=== PATIENT | male | born 1955 | race Caucasian/White ===

== ENCOUNTER → 2019-02-16 | Outpatient (CLI) | payer OTHER ==
--- NOTE | 2019-02-16 07:53 | US ---
EXAMINATION TYPE: US gallbladder DATE OF EXAM: 02/16/2019 COMPARISON: NONE CLINICAL HISTORY: R10.11 RUQ Pain. Intermittent epigastric and lower back tenderness x 2 to 3 weeks EXAM MEASUREMENTS: Liver Length: 13.6 cm Gallbladder Wall: 0.2 cm CBD: 0.3 cm Right Kidney: 10.4 x 5.0 x 4.8 cm Pancreas: visualized portions wnl, limited by overlying midline bowel gas Liver: There is increased echogenicity of the hepatic parenchyma with diminished visualization of th e portal triads most commonly relating to hepatic steatosis and limiting evaluation for underlying he patic masses. There is an anechoic probable cyst measuring 1.3 cm with slight increased through trans mission. Gallbladder: wnl Evidence for sonographic Vasquez's sign: no CBD: visualized portions wnl, limited by overlying bowel gas Right Kidney: wnl IMPRESSION: Increased echogenicity of the hepatic parenchyma most commonly related to mild degree hep atic steatosis. Correlate with liver function tests. Solitary probable 1.3 cm hepatic cyst is also se en.
== END | disposition home or self-care (01) ==
LOC: RADUSWWP 06:45
PROVIDERS: ATTEND Family Medicine
DX: K76.0 Fatty (change of) liver, not elsewhere classified (principal)
CPT/HCPCS: 76705

== ENCOUNTER 2021-01-03 08:10 | Day surgery (SDC) | payer MEDICARE, OTHER ==
[2021-01-01 08:34] VITALS: BMI 26.3
[~2021-01-03 08:10] MED LIST: LACTATED RINGERS 1,000 ML IV SCH
[2021-01-03] MEDS ORDERED: LACTATED RINGERS 1,000 ML IV ONE (09:03)
[2021-01-03 09:04] VITALS: TEMP 97.5
[2021-01-03] MEDS ORDERED: PROPOFOL 10 MG/ML 20 ML VIAL IV ONE (09:37)
--- NOTE | 2021-01-03 09:45 | P.GSHP ---
History of Present Illness H&P Date: 01/03/21 Chief Complaint: History of colon polyps This is a 65-year-old male with previous history of colon polyps. His last colonoscopy was 5 years ago. Past Medical History Past Medical History: Osteoarthritis (OA), Prostate Disorder Additional Past Medical History / Comment(s): palpitations, BPH., snores, constipation, hx of colon polyps. History of Any Multi-Drug Resistant Organisms: None Reported Past Surgical History: Hernia Repair Additional Past Surgical History / Comment(s): inguinal hernia, colonoscopy Past Anesthesia/Blood Transfusion Reactions: No Reported Reaction, Motion Sickness Past Psychological History: No Psychological Hx Reported Smoking Status: Former smoker Past Alcohol Use History: Occasional Additional Past Alcohol Use History / Comment(s): smoked for approx 1 yr as teen Past Drug Use History: None Reported - Past Family History Father Family Medical History: CVA/TIA, Myocardial Infarction ([place]) Mother Family Medical History: Dementia Brother(s) Family Medical History: Cancer Additional Family Medical History / Comment(s): pancreatic cancer Medications and Allergies Home Medications Medication Instructions Recorded Confirmed Type Co Q-10 1 tab PO DAILY 01/01/21 01/01/21 History Allergies Allergy/AdvReac Type Severity Reaction Status Date / Time No Known Allergies Allergy Verified 01/01/21 08:13 Surgical - Exam Vital Signs Temp Pulse Resp BP Pulse Ox 97.5 F L 70 18 131/63 97 01/03/21 09:03 01/03/21 09:03 01/03/21 09:03 01/03/21 09:03 01/03/21 09:03 - General well developed, well nourished, no distress - Eyes PERRL - ENT normal pinna - Neck no masses - Respiratory normal expansion - Cardiovascular Rhythm: regular - Abdomen Abdomen: soft, non tender Assessment and Plan Assessment: History of colon polyps. We'll perform colonoscopy.
--- NOTE | 2021-01-03 10:01 | P.OP ---
Date of Procedure: 01/03/21 Preoperative Diagnosis: History of colon polyps Postoperative Diagnosis: Right colon polyp Procedure(s) Performed: Colonoscopy Anesthesia: MAC Surgeon: Maximilian Salomon Pathology: other (Right colon polyp) Condition: stable Disposition: PACU Description of Procedure: The patient's placed on the endoscopy table in the lateral position. He received IV sedation. Digital rectal exam was performed which revealed no ebonized. The flexible colonoscope was then placed patient anus passed throughout the entire colon. The ileocecal valve was visualized. Cecum appeared normal. In the right colon there was a polyp seen this removed with the snare. The remainder the ascending colon, transverse colon the colon appeared normal. In the sigmoid colon a few scattered diverticula. Scope was brought back the rectum this appeared all. Scope withdrawn for patient.
[2021-01-03 10:19] VITALS: BP 111/70; PULSE 67; RESP 16
== END 2021-01-03 10:52 | disposition home or self-care (01) ==
LOC: ORWHC2ENDO 08:10
PROVIDERS: ATTEND Surgery
DX: Z12.11 Encounter for screening for malignant neoplasm of colon (principal); D12.2 Benign neoplasm of ascending colon; K63.3 Ulcer of intestine; K57.30 Diverticulosis of large intestine without perforation or abscess without bleeding; Z86.010 Personal history of colon polyps; R00.2 Palpitations; N40.0 Benign prostatic hyperplasia without lower urinary tract symptoms; M19.90 Unspecified osteoarthritis, unspecified site; K59.00 Constipation, unspecified; Z98.890 Other specified postprocedural states; Z87.891 Personal history of nicotine dependence; Z82.3 Family history of stroke; Z82.49 Family history of ischemic heart disease and other diseases of the circulatory system; Z81.8 Family history of other mental and behavioral disorders; Z80.0 Family history of malignant neoplasm of digestive organs
CPT/HCPCS: 88305; 45385; J2704

== ENCOUNTER → 2022-07-03 | Outpatient (CLI) | payer MEDICARE, OTHER ==
[2022-07-03 09:45] LABS: Basophils % (A) 1 %; Eosinophils % (A) 1 %; HCT 49.6 % (39.0-53.0); HGB 16.4 gm/dL (13.0-17.5); Lymphocytes # (A) 1.6 k/uL (1.0-4.8); Lymphocytes % (A) 23 %; MCH 31.1 pg (25.0-35.0); MCHC 33.1 g/dL (31.0-37.0); MCV 93.8 fL (80.0-100.0); Mean Platelet Volume 8.1; Monocytes # (A) 0.4 k/uL (0-1.0); Monocytes % (A) 6 %; Neutrophils % (A) 70 %; Platelet Count 199 k/uL (150-450); RBC 5.29 m/uL (4.30-5.90); RDW 13.3 % (11.5-15.5); WBC 7.2 k/uL (3.8-10.6)
[2022-07-03 10:01] LABS: Uric Acid 8.3 mg/dL (3.5-8.5)
[2022-07-03 10:27] LABS: C Reactive Protein 1.1 mg/dL (<1.0)
[2022-07-03 11:35] LABS: Erythrocyte Sedimentation Rate 4 mm/hr (0-15)
[2022-07-03 20:17] LABS: Rheumatoid Factor, Qnt <10 IU/mL (0-15)
== END | disposition home or self-care (01) ==
LOC: LABWHC1 09:25
PROVIDERS: ATTEND Podiatrist Foot & Ankle Surgery
DX: B99.9 Unspecified infectious disease (principal); M10.9 Gout, unspecified
CPT/HCPCS: 36415; 84550; 85025; 85652; 86038; 86140; 86431

== ENCOUNTER → 2023-01-10 | Outpatient (CLI) | payer MEDICARE, OTHER ==
--- NOTE | 2023-01-10 17:13 | MR ---
EXAMINATION TYPE: MR Prostate wo/w con DATE OF EXAM: 01/10/2023 9:41 AM COMPARISON: 12/25/2015 MR sacrum. CLINICAL INDICATION:Male, 67 years old with history of N40.1; TECHNIQUE: Multi-planar, multi-sequence imaging of the pelvis is performed prior to and following the uncomplicated administration of bolus intravenous gadolinium. CONTRAST: 8 Gadavist Interpretive Criteria: PI-RADS v2.1 SERUM PSA: 8.2 10/27/2022, 11.5 05/06/2022, 11.4 04/08/2022, 5.7 07/06/2020 SURGICAL PATHOLOGY: No data available. FINDINGS: Prostatic dimensions: 6.0 x 6.6 x 3.8 cm. Ellipsoid Volume:78.79 (PSA density=0.10 ng/mL/mL) CENTRAL GLAND (Central and Transition Zones/CZ+TZ): Multiple bilateral, heterogenous appearing hypertrophic stromal nodules, without suspicious lesion. M edian lobe hypertrophy with protrusion into the base of the bladder. (PI-RADS 2) PERIPHERAL ZONE (PZ): Bilateral linear, indistinct wedgelike areas of low ADC, and low T2 signal, No evidence of masslike a bnormality, or localized perfusional hypervascularity, to further suggest a focus of clinically signi ficant prostate cancer. (PI-RADS 2) SEMINAL VESICLES (SV):High T1 signal in the left seminal vesicles compatible with proteinaceous/hemor rhagic contents. PERIPROSTATIC TISSUES: Unremarkable. LYMPH NODES: No enlarged pelvic lymph node. REMAINING PELVIS: Bladder wall is within normal limits given distention. No abnormal free or organized intrapelvic fluid collection. No pathologic bowel dilation or mural thickening. Fat-containing left inguinal hernia. OSSEOUS STRUCTURES: No suspicious osseous abnormality. IMPRESSION: 1. No specific features for high-risk prostate cancer. Maximum PI-RADS score: 2. 2. Moderate BPH, estimated gland volume 78.79 mL.
== END | disposition home or self-care (01) ==
LOC: RADMRIMAIN 07:56
PROVIDERS: ATTEND Urology
DX: N40.1 Benign prostatic hyperplasia with lower urinary tract symptoms (principal)
CPT/HCPCS: 72197; A9585

== ENCOUNTER → 2024-05-09 | Outpatient (CLI) | payer MEDICARE, OTHER ==
--- NOTE | 2024-05-09 10:16 | CT ---
EXAMINATION TYPE: CT brain wo con DATE OF EXAM: 05/09/2024 COMPARISON: MRI 02/20/2016 HISTORY: 69-year-old male R41.3, memory loss issues. TECHNIQUE: Examination was done in axial plane without intravenous contrast. Coronal and sagittal r econstructions performed. CT DLP: 1029.90 mGycm Automated exposure control for dose reduction was used. FINDINGS: There is no evidence of acute intracranial hemorrhage, acute ischemic changes, mass, mass-effect, or extra-axial fluid collection. There is no effacement of cerebral sulci or basal subarachnoid cister ns. There is no hydrocephalus. There is no midline shift. Barnett-white matter distinction is preserv ed. There is slight leftward nasal septal deviation. Paranasal sinuses and mastoid air cells are well pne umatized. Orbits and globes are intact. IMPRESSION: No intracranial abnormality seen.
== END | disposition home or self-care (01) ==
LOC: RADCTMAIN 09:19
PROVIDERS: ATTEND Family Medicine
DX: R41.3 Other amnesia (principal)
CPT/HCPCS: 70450

== ENCOUNTER 2024-06-11 14:13 | Emergency (ER) | payer MEDICARE, OTHER ==
[2024-06-11 14:16] VITALS: BP 137/71; PULSE 68; RESP 18; TEMP 97.7
--- NOTE | 2024-06-11 14:59 | ED ---
Animal Bite HPI - General Chief Complaint: Animal Bite Stated Complaint: Dog bite on chest Time Seen by Provider: 06/11/24 14:58 Source: patient, RN notes reviewed Mode of arrival: ambulatory Limitations: no limitations - History of Present Illness Initial Comments: 69-year-old male presented to the ER with a chief complaint of a dog bite. Patient states he was looking into finding a vehicle and when entering someone's home there was a large dog. Unknown breed. He states the dog jumped up and bit his left chest. He is reporting a mild sore sensation to his left chest. Incident occurred around 11:45 AM. Denies any other injuries or complaints. States bleeding is controlled at this time. No blood thinners. Tetanus status unknown. Denies any shortness of breath, difficulty breathing or other complaints. - Related Data Home Medications Medication Instructions Recorded Confirmed Co Q-10 1 tab PO DAILY 01/01/21 01/01/21 Previous Rx's Medication Instructions Recorded Amoxic-Pot Clav 875-125Mg 1 tab PO BID 7 Days #14 tab 06/11/24 [Augmentin 875-125] Amoxic-Pot Clav 875-125Mg 1 tab PO Q12HR #20 tab 06/11/24 [Augmentin 875-125] Allergies Allergy/AdvReac Type Severity Reaction Status Date / Time No Known Allergies Allergy Verified 06/11/24 14:16 Review of Systems ROS Statement: Those systems with pertinent positive or pertinent negative responses have been documented in the HPI. ROS Other: All systems not noted in ROS Statement are negative. Past Medical History Past Medical History: Osteoarthritis (OA), Prostate Disorder Additional Past Medical History / Comment(s): palpitations, BPH., snores, constipation, hx of colon polyps. History of Any Multi-Drug Resistant Organisms: None Reported Past Surgical History: Hernia Repair Additional Past Surgical History / Comment(s): inguinal hernia, colonoscopy Past Anesthesia/Blood Transfusion Reactions: No Reported Reaction, Motion Sickness Past Psychological History: No Psychological Hx Reported Smoking Status: Former smoker Past Alcohol Use History: Occasional Past Drug Use History: None Reported - Past Family History Father Family Medical History: CVA/TIA, Myocardial Infarction ([place]) Mother Family Medical History: Dementia Brother(s) Family Medical History: Cancer Additional Family Medical History / Comment(s): pancreatic cancer General Exam Limitations: no limitations General appearance: alert, in no apparent distress Respiratory exam: Present: normal lung sounds bilaterally, other (1 cm superficial puncture wound to left chest. There is also an adjacent abrasion. No active bleeding. Symmetrical chest wall motions.). Absent: respiratory distress, wheezes, rales, rhonchi, stridor Cardiovascular Exam: Present: regular rate, normal rhythm, normal heart sounds. Absent: systolic murmur, diastolic murmur, rubs, gallop, clicks Neurological exam: Present: alert, oriented X3, CN II-XII intact Skin exam: Present: warm, dry, intact, normal color. Absent: rash Course Vital Signs 06/11/24 14:14 Temperature 97.7 F Pulse Rate 68 Respiratory 18 Rate Blood Pressure 137/71 O2 Sat by Pulse 98 Oximetry Medical Decision Making - Medical Decision Making Was pt. sent in by a medical professional or institution (, PA, MEDICAL TECHNICIAN, urgent care, hospital, or senior living...) When possible be specific @ -No Did you speak to anyone other than the patient for history (EMS, parent, family, police, friend...)? What history was obtained from this source @ -No Did you review nursing and triage notes (agree or disagree)? Why? @ -I reviewed and agree with nursing and triage notes Were old charts reviewed (outside hosp., previous admission, EMS record, old EKG, old radiological studies, urgent care reports/EKG's, senior living records)? Report findings @ -No old charts were reviewed Differential Diagnosis (chest pain, altered mental status, abdominal pain women, abdominal pain men, vaginal bleeding, weakness, fever, dyspnea, syncope, headache, dizziness, GI bleed, back pain, seizure, CVA, palpatations, mental health, musculoskeletal)? @ -Dog bite, cat bite, cellulitis, rabies This list is not meant to be all inclusive EKG interpreted by me (3pts min.). @ -None done X-rays interpreted by me (1pt min.). @ -Chest x-ray interpreted me negative for acute cardiopulmonary process. CT interpreted by me (1pt min.). @ -None done U/S interpreted by me (1pt. min.). @ -None done What testing was considered but not performed or refused? (CT, X-rays, U/S, labs)? Why? @ -None What meds were considered but not given or refused? Why? @ -Patient refused rabies vaccination Did you discuss the management of the patient with other professionals (professionals i.e. , PA, MEDICAL TECHNICIAN, lab, RT, psych nurse, social service agency director, beater lead, teacher, mortgage loan officer originator, pillowcase cleaner)? Give summary @ -No Was smoking cessation discussed for >3mins.? @ -No Was critical care preformed (if so, how long)? @ -No Were there social determinants of health that impacted care today? How? (Homelessness, low income, unemployed, alcoholism, drug addiction, transportation, low edu. Level, literacy, decrease access to med. care, care home, rehab)? @ -No Was there de-escalation of care discussed even if they declined (Discuss DNR or withdrawal of care, Hospice)? DNR status @ -No What co-morbidities impacted this encounter? (DM, HTN, Smoking, COPD, CAD, Cancer, CVA, ARF, Chemo, Hep., AIDS, mental health diagnosis, sleep apnea, morbid obesity)? @ -None Was patient admitted / discharged? Hospital course, mention meds given and route, prescriptions, significant lab abnormalities, going to OR and other pertinent info. @ -Discharge. 69-year-old male presented to ER with a chief complaint of a dog bite. History and physical exam completed. Vitals within normal limits. Patient in no signs of acute distress and resting comfortably in exam room. Exam remarkable for a 1 cm puncture wound to left anterior chest. No active bleeding. Symmetrical chest wall motions. Lung sounds clear and present in all lung noonan. Wound cleaned with iodine and sterile water. Tetanus updated. Chest x-ray performed to rule out pneumothorax which is negative for acute cardiopulmonary process. Patient will be started on Augmentin for infection prophylaxis. Patient refused rabies vaccination. Strict return parameters di scussed. Patient discharged in stable condition with follow-up to PCP. Patient verbally expressed understanding agree with care plan. Case discussed with ED attending by Dr. Delacruz. Undiagnosed new problem with uncertain prognosis? @ -No Drug Therapy requiring intensive monitoring for toxicity (Heparin, Nitro, Insulin, Cardizem)? @ -No Were any procedures done? @ -No Diagnosis/symptom? @ -Dog bite Acute, or Chronic, or Acute on Chronic? @ -Acute Uncomplicated (without systemic symptoms) or Complicated (systemic symptoms)? @ -Uncomplicated Side effects of treatment? @ -No Exacerbation, Progression, or Severe Exacerbation? @ -No Poses a threat to life or bodily function? How? (Chest pain, [place], [place], pneumonia, PE, COPD, DKA, ARF, appy, cholecystitis, CVA, Diverticulitis, Homicidal, Suicidal, threat to staff... and all critical care pts) @ -No - Radiology Data Radiology results: report reviewed, image reviewed Disposition Clinical Impression: Dog bite Disposition: HOME SELF-CARE Condition: Stable Instructions (If sedation given, give patient instructions): Animal Bite (ED) Additional Instructions: Complete full course of antibiotics. You may take OTC tylenol and Motrin for pain control. I recommend following up with police department for monitoring animal for rabies. Return to the ER for any new or worsening concerns. Prescriptions: Amoxic-Pot Clav 875-125Mg [Augmentin 875-125] 1 tab PO BID 7 Days #14 tab Amoxic-Pot Clav 875-125Mg [Augmentin 875-125] 1 tab PO Q12HR #20 tab Is patient prescribed a controlled substance at d/c from ED?: No Referrals: Lucas Sevilla [Primary Care Provider] - 1-2 days
--- NOTE | 2024-06-11 15:38 | XR ---
EXAMINATION TYPE: XR chest 2V DATE OF EXAM: 06/11/2024 3:18 PM CLINICAL INDICATION: Male, 69 years old with history of dog bite left chest; [facility] COMPARISON: 11/13/2011 TECHNIQUE: XR chest 2V Frontal view of the chest. FINDINGS: Lungs/Pleura: There is no evidence of pleural effusion, focal consolidation, or pneumothorax. Pulmonary vascularity: Unremarkable. Heart/mediastinum: Cardiomediastinal silhouette is unremarkable. Musculoskeletal: No acute osseous pathology. Other findings: None IMPRESSION: No acute cardiopulmonary disease/process. [facility] Romy Almonte, , 06/11/2024 3:35 PM
[2024-06-11] MEDS: DIPH,PERTUS(ACELL)TETVAC-LF 0.5 ML VIAL IM ONE (15:50)
== END 2024-06-11 16:18 | disposition home or self-care (01) ==
LOC: EC 14:13
CPT/HCPCS: 71046; 90471; 90715; 99283